=== PATIENT | female | born 1960 | race Caucasian/White ===

== ENCOUNTER 2024-10-20 15:36 | Emergency (ER) | payer MEDICARE, MEDICAID ==
[~2024-10-20] VITALS: Ht 154.9 cm; Wt 67.2 kg
[2024-10-20 15:43] VITALS: BP 157/96; PULSE 75; RESP 16; O2SAT 99
--- NOTE | 2024-10-20 15:55 | Physician Documentation ---
History of Present Illness ~ Chief Complaint: Head Pain Stated Complaint: "I HIT MY HEAD" Time Seen by MD: 15:49 OK to notify your PCP?: Yes Source: patient Mode of Arrival: POV Exam Limitations: no limitations HPI 64-year-old female presents with large hematoma to her left forehead which extends from her brow bone up to the hairline and wraps around to the lutheran. She states it around 11:00 a.m. she was working on a steel drum and slipped in the hit her head on the steel surface. She denies any loss of consciousness, blood thinners, vision change or nausea vomiting. She did take ibuprofen for her pain prior to arrival. Medication Reconciliation Allergies: Coded Allergies: No Known Allergies (Unverified , 10/20/24) Review of Systems All Other Systems at this time: Reviewed and Negative Physical Exam Vital Signs: RN Vital Signs have been reviewed: Yes Pulse Oximetry Reflects: adequate oxygenation Physical Exam General: Well developed, awake, alert, and conversant, in no apparent distress. Skin: Warm, dry. HEENT: Head: Normocephalic, large hematoma to left forehead from brow bone up into hairline and over into lutheran. tenderness to palpation around hematoma. Skin intact. Eyes: Sclerae and conjunctiva normal; pupils equal, round, reactive to light. EOM intact. No nystagmus or periorbital ecchymosis noted. Ears: Canals are patent. Tympanic membranes are clear. No hemotympanum. Nose/face: There is no septal hematoma. Facial bones are nontender to palpation and stable with attempts at manipulation. Mouth/throat: No intraoral trauma. Teeth and mandible are intact. Neck: Trachea midline. No midline point tenderness, step-offs, or deformity to firm palpation of posterior cervical spine. No masses. No JVD. Full range of motion of neck without limitation or pain. Chest: No surface trauma. Nontender without crepitus or deformity. No palpable subcutaneous air. Lungs have good tidal volume with normal breath sounds bilaterally. Heart: Regular rate and rhythm. No murmurs, rubs, clicks, or gallops heard. Abdomen: No abrasions, ecchymosis or surface trauma. Bowel sounds are active. No distention. Nontender to palpation: No guarding, rebound, or rigidity. No masses. Back: No contusions, ecchymosis, or abrasions are noted. Nontender without step-off or deformity to firm midline palpation. No CVAT or flank ecchymosis. : Normal external genitalia with no blood at the meatus. No scrotal swelling or tenderness. Pelvis: Nontender to palpation and stable to compression. Femoral pulses strong and equal 2+ bilaterally. Rectal: Normal tone. No rectal wall tenderness or mass. Extremities: No surface trauma. Full range of motion without limitation or pain. Good strength in all extremities. Sensation to light touch intact. All peripheral pulses are intact and equal. Neurological: A&Ox3, CN II-XII intact. Motor and sensory exam nonfocal. Progress Results/Orders Reviewed/noted all lab results: Yes Results/Orders Orders - NALLELY RECIO MATERIAL COMBINER Ct Head (10/20/24 15:48) Completed Orders - NALLELY RECIO MATERIAL COMBIN[employer] Ct Head (10/20/24 15:48) Vital Signs 10/20/24 15:43 Temp 97.8 Pulse 75 Resp 16 B/P (MAP) 157/96 Pulse Ox 99 O2 Flow Rate 0 EKG/XRAY/CT/US/VASC/MRI CT : Impression Head CT scan as interpreted by me; no free air, no intracranial hemorrhage, no subdural hemorrhage, no skull fracture. There is some soft tissue swelling to the left forehead. Medical Decision Making Additional info obtained from: old records Findings 64-year-old female presents after hitting her head on a steel drum earlier today. She does have a large hematoma to the left side of her forehead which extends into the lutheran and up into the hairline. She does have some tenderness to palpation of the skin around the hematoma but otherwise does not have a headache, neck pain or have any other pains. She did take some ibuprofen prior to arrival. She had no loss of consciousness, no vision change, no nausea/vomiting, no balance change no alarming symptoms at all. Due to her age and the mechanism I did a CT scan without contrast of her head to assess for any possible hemorrhage. CT was negative for any skull fracture or hemorrhage. We discussed that she may have sustained a concussion and to take care not to hit her head on anything for the next 6-8 weeks to allow time for the brain to heal. We discussed if she has any changes whatsoever such as balance changes, vision changes or becomes altered she is to be seen immediately. She agrees to this plan. Differential Dx:Considerations: Include: Cervical spine injury, Skull facture, Fracture Additional Comment Intracranial hemorrhage, basilar, skull fracture Departure Disposition: 01 HOME / SELF CARE / HOMELESS Impression: Primary Impression: Superficial bruising Condition: Stable Discharge Instructions: Head Injuries, Adult Additional Instructions: Return back here for any new or worsening symptoms. Follow up with your primary care provider within the next week. Referrals: NO PRIMARY CARE PROVIDER (PCP) Education Educated: Patient Educated regarding: diagnosis, treatment, prognosis, need for follow up Additional Comment Medical Screen Exam This patient recieved a medical screening examination. After reviewing the individual's medical complaints with presenting symptoms and performing an appropriate physical examination, it was determined that no immediate life- threatening emergency medical condition is present. This individual is also not a women having contractions. Signature Scribe Signature: . Attestation: Scribed for Nallely Recio Solar Process Engineer by Nallely Ely NP . 10/20/24 16:50 Parts of this note were created using [employer] voice recognition software program. While efforts were made to correct any mistakes made by this voice recognition software program, nonsensical phrases may remain in this note. In addition, there may be errors and syntax, grammar, content and spelling. NALLELY RECIO MATERIAL COMBINER Oct 20, 2024 15:55
--- NOTE | 2024-10-20 16:19 | RADIOLOGY REPORT ---
EXAM: CT CT HEAD INDICATION: Large forehead hematoma, hit head on steel drum TECHNIQUE: CT of the head without intravenous contrast. Coronal and sagittal reformatted images are s ubmitted. Radiation Dose : 1. Head: CT Dose: CTDI volume is 46.2 mGy. Dose-length product is 800.1 mGy*cm The dose indicators for CT are the volume Computed Tomography (CT) Dose Index (CTDIvol) and the Dose Length Product (DLP), and are measured in units of mGy and mGy-cm, respectively. These indicators are not patient dose, but values generated from the CT scanner acquisition factors. The report includes radiation exposure data for exposures received during this examination. All CT scans at this medical facility are performed using dose modulation techniques as appropriate to a performed exam including the following: Automated exposure control was utilized; adjustment of the MA and/or KV according to patient size; and use of iterative reconstruction technique. COMPARISON: None FINDINGS: There is no evidence of acute intracranial hemorrhage, extra-axial collection, mass effect, midline s hift, herniation or hydrocephalus. Focus of hyperdensity in the suprasellar cistern likely reflects v olume averaging. Beam hardening artifact in the anterior frontal lobes. The ventricles, sulci and cisterns are age appropriate. The eden-white differentiation is intact. The visualized paranasal sinuses and mastoid air cells are clear. No depressed calvarial fracture. Left frontal scalp soft tissue swelling. IMPRESSION: 1. No evidence of acute intracranial abnormality. 2. Left frontal scalp soft tissue swelling. HS:Y
[2024-10-20 16:41] VITALS: TEMP 97.8
== END 2024-10-20 16:46 | disposition home or self-care (01) ==
LOC: ER 15:37
DX: S00.83XA Contusion of other part of head, initial encounter (principal); W22.8XXA Striking against or struck by other objects, initial encounter; Y93.89 Activity, other specified; Y92.89 Other specified places as the place of occurrence of the external cause; Y99.8 Other external cause status
CPT/HCPCS: 70450; 99284